=== PATIENT | male | born 1985 | race American Indian/Alaskan Native ===

== ENCOUNTER 2019-06-14 06:39 | Emergency (ER) | payer SELFPAY ==
[2019-06-14] MEDS ORDERED: ROCEPHIN IM ONE (08:01)
[2019-06-14] MEDS ORDERED: ZITHROMAX PO ONE (08:01)
[2019-06-14] MEDS ORDERED: XYLOCAINE 1% MPF 5 mL INFILTRATI ONE (08:01)
--- NOTE | 2019-06-14 08:10 | Emergency Department Report ---
Chief Complaint: Urogenital-Male Stated Complaint: STI TESTING Time Seen by Provider: 06/14/19 07:39 - HPI History of Present Illness: This is a 34-year-old male who presents to ED complaining of penile discharge for weekend requesting STD testing. Patient denies penile pain, testicular pain or swelling, dysuria, fever, abdominal pain or pelvic pain or any other symptoms. - ROS Review of Systems: All systems reviewed and negative - Exam Vital Signs: Vital Signs 06/14/19 06:43 Temperature 98.0 F Pulse Rate 56 L Respiratory 16 Rate Blood Pressure 137/83 [Right] O2 Sat by Pulse 100 Oximetry Physical Exam: GENERAL: Alert and oriented x3, no apparent distress, Normal Gait, atraumatic. SKIN: Warm and dry, No lesions, No ulceration or induration present. MSE screening note: Focused history and physical exam performed. Due to findings the following was ordered: ED Medical Decision Making - Medical Decision Making 34-year-old male presents with possible STD exposure. ED course: I discussed with the patient this is not a medical emergency and he should follow-up with the [facility] or [facility] for STD screening. Patient received 250 mg of Rocephin, azithromycin 1 g in the ED today Discussed he will be sent home on metronidazole for prophylaxis for trichomoniasis. Discussed prophylaxis treatment patient is to abstain from sex 7-10 days as treatment. Discussed the follow-up with the health department for further STD testing. Patient's alert and oriented times 3. Vital signs are normal patient is in no acute discharge. Patient will be discharged home with instructions. ED Disposition for MSE Clinical Impression: STD exposure Disposition: - TO HOME OR SELFCARE Is pt being admited?: No Does the pt Need Aspirin: No Condition: Stable Instructions: Safe Sex (ED), Sexually Transmitted Diseases (ED) Additional Instructions: Make sure to follow up with the primary care physician as discussed. Take all your medications as you've been prescribed. If you have any worsening symptoms or develop new symptoms please return to ED immediately. Prescriptions: metroNIDAZOLE [Flagyl] 2,000 mg PO ONCE #4 tab Referrals: PRIMARY CARE, [Primary Care Provider] - 3-5 Days [facility] [Outside] - 3-5 Days [facility] [Outside] - 3-5 Days Forms: Work/School Release Form(ED) Time of Disposition: 08:11
[2019-06-14 08:23] VITALS: BP 134/80
== END 2019-06-14 08:22 | disposition home or self-care (01) ==
LOC: ED 06:39
DX: R36.9 Urethral discharge, unspecified (principal); Z20.2 Contact with and (suspected) exposure to infections with a predominantly sexual mode of transmission
CPT/HCPCS: 96372; 99282; J0696